=== PATIENT | male | born 1935 | race Caucasian/White ===

== ENCOUNTER 2018-09-25 16:02 | Inpatient (IN) | payer MEDICARE, OTHER ==
[~2018-09-25] VITALS: Ht 180.3 cm; Wt 74.9 kg
[2018-09-25] MEDS ORDERED: SODIUM CHLORIDE 0.9% 1,000 ML IVB ONE (17:28)
[2018-09-25 17:49] LABS: Basophils # (auto) 0 uL; Basophils % (auto) 0.7 % (0.0-2.0); Eosinophils # (auto) 0 uL; Eosinophils % (auto) 0.3 % (0.0-7.0); Hematocrit 39.3 % (41.0-53.0); Hemoglobin 13.1 g/dL (13.5-17.5); Lymphocytes # (auto) 0.4 uL; Lymphocytes % (auto) 7.6 % (10.0-50.0); Mean Corpuscular Hemoglobin 31.9 pg (28.0-32.0); Mean Corpuscular Hgb Conc. 33.4 g/dL (32.0-36.0); Mean Corpuscular Volume 95.6 fL (80.0-100.0); Monocytes # (auto) 0.4 uL; Monocytes % (auto) 7.2 % (0.0-12.0); Neutrophils # (auto) 4.5 uL; Neutrophils % (auto) 84.2 % (37.0-80.0); Nucleated Red Blood Cells % 0.1 %; Platelet Count (auto) 107 10^3/uL (140-450); Red Cell Distribution Width 16.2 % (11.8-14.3); White Blood Cell 5.4 10^3/uL (4.4-10.8)
[2018-09-25 18:01] LABS: Calcium 8.3 mg/dL (8.5-10.1); Potassium 3.6 mmol/L (3.5-5.1)
[2018-09-25 18:04] LABS: BUN/Creatinine Ratio 18.8; INR 1.45 (0.9-1.15); Partial Thromboplastin Time 38.4 sec (23.64-32.05)
[2018-09-25 18:09] LABS: Bilirubin, Total 1.2 mg/dL (0.2-1.0)
[2018-09-25] MEDS ORDERED: cefTRIAXone 1GM/50ML D5W 50 ML IV ONE (21:15)
[2018-09-25] MEDS ORDERED: ONDANSETRON HCL 4 MG/2 ML VIAL IV PRN (21:15)
[2018-09-25] MEDS: HYDROcodone-ACET 5/325MG TAB PO PRN (22:31)
[2018-09-26] MEDS ORDERED: FUROSEMIDE 40 MG/4 ML VIAL IV ONE
[2018-09-26] MEDS ORDERED: POTASSIUM CHL 20 Meq TABLET PO ONE
[2018-09-26] MEDS ORDERED: FUROSEMIDE 40 MG/4 ML VIAL ONE (00:42)
[2018-09-26 01:47] LABS: Urine Bacteria NONE SEEN /hpf (None Seen); Urine Blood 1+ /uL (Negative); Urine Hyaline Cast FEW /lpf (0 - 2); Urine Mucus FEW (None Seen); Urine Specific Gravity 1.025 (1.001-1.035); Urine WBC 16 /hpf (0 - 3)
[2018-09-26 07:46] LABS: Calcium 8.1 mg/dL (8.5-10.1); Potassium 3.8 mmol/L (3.5-5.1)
[2018-09-26 09:01] LABS: Basophils # (auto) 0 uL; Eosinophils # (auto) 0.1 uL; Eosinophils % (auto) 1.2 % (0.0-7.0); Hematocrit 41.3 % (41.0-53.0); Hemoglobin 13.5 g/dL (13.5-17.5); Lymphocytes # (auto) 0.6 uL; Lymphocytes % (auto) 13.1 % (10.0-50.0); Mean Corpuscular Hemoglobin 31.6 pg (28.0-32.0); Mean Corpuscular Hgb Conc. 32.8 g/dL (32.0-36.0); Mean Corpuscular Volume 96.3 fL (80.0-100.0); Monocytes # (auto) 0.4 uL; Monocytes % (auto) 8.7 % (0.0-12.0); Neutrophils # (auto) 3.4 uL; Platelet Count (auto) 102 10^3/uL (140-450); Red Blood Cells 4.28 10^6/uL (4.5-5.90); Red Cell Distribution Width 16.1 % (11.8-14.3); White Blood Cell 4.5 10^3/uL (4.4-10.8)
[2018-09-26] MEDS: cefTRIAXone 1GM/50ML D5W 50 ML IV SCH (09:35)
[2018-09-26] MEDS: FUROSEMIDE 40 MG/4 ML VIAL IV SCH (10:00)
[2018-09-26] MEDS: POTASSIUM CHL 20 Meq TABLET PO SCH (10:00)
[2018-09-26] MEDS: SODIUM CHLORIDE 0.9% 1,000 ML IV SCH (14:28)
--- NOTE | 2018-09-26 16:00 | NUR ---
MS admit from ER DONMARCOS admitted to med/surg unit. Verbal report received from ER nurse. Patient oriented to Gretel James RN primary RN, unit, room, bed, and unit policies regarding patient care and visiting hours. Patient weighed by bedscale and encouraged to call if they need something. All questions and concerns addressed, patient verbalized understanding. Pt is able to answer basic questions. Pt is poor historian, and unable to state home medications. Mcfarland draining clear yellow urine. IV patent, site clear to left hand. Pt c/o chronic back pain, but denies pain medication at this time. Pt able to drink water without difficulty swallowing. Note:
--- NOTE | 2018-09-26 16:30 | NUR ---
Attempted to start new 20g IV above hand/wrist area, per request of radiologic technologist chief, without success. Current 20g IV to right wrist area patent, with good blood return, and flushes without resistance or c/o discomfort from pt. radiologic technologist chief informed. Pt's son at bedside to assist with admission questions.
[2018-09-26] MEDS ORDERED: IOHEXOL 350 MG/ML 100ML IJ ONE (16:38)
--- NOTE | 2018-09-26 17:00 | NUR ---
Pt returned from CT scan. IV to right hand/wrist area patent, site clear, with no c/o tenderness or discomfort.
[2018-09-26] MEDS: HYDROcodone-ACET 5/325MG TAB PO PRN (17:17)
[2018-09-26] MEDS ORDERED: DIGO0.1220 PO (17:40)
[2018-09-26] MEDS ORDERED: LOSA-39 PO (17:40)
[2018-09-26] MEDS ORDERED: POTA-220 PO (17:40)
--- NOTE | 2018-09-26 17:55 | NUR ---
Nasal swap sent for MRSA screening.
--- NOTE | 2018-09-26 18:54 | NUR ---
Pt sitting on edge of bed, feeding self without difficulty chewing or swallowing. Son remains at bedside.
--- NOTE | 2018-09-26 18:56 | NUR ---
Results of CT angio pending.
--- NOTE | 2018-09-26 19:39 | NUR ---
Opening Shift Note Assumed care of patient, awake and alert. No S/S of distress/SOB or pain. Instructed on POC and to call for assist PRN, will continue to monitor for changes Q1hr and PRN. Bed alarm turned on, bed in low position. Son at bedside. PICTURE TAKEN TO PRESSURE WOUND ON SACRUM. PATIENT AND SON NOTIFIED.
--- NOTE | 2018-09-26 21:31 | NUR ---
SACRUM PRESSURE ULCER PRESENT ON ADMISSION.
[2018-09-26 22:10] VITALS: BP 109/63
[2018-09-27 05:11] VITALS: BP 97/57
[2018-09-27] MEDS: SODIUM CHLORIDE 0.9% 1,000 ML IV SCH (05:22)
[2018-09-27 08:00] VITALS: BP 117/74
[2018-09-27] MEDS: HYDROcodone-ACET 5/325MG TAB PO PRN ×2 (08:19→15:13)
[2018-09-27] MEDS: cefTRIAXone 1GM/50ML D5W 50 ML IV SCH (08:19)
[2018-09-27 09:00] VITALS: BP 96/61
--- NOTE | 2018-09-27 09:00 | NUR ---
Pt alert and oriented to self. Pt unable to state time, place or situation. [place] given for c/o chronic low back pain, with good effectiveness. No other c/o pain or discomfort. Pt is cooperative with care rendered. Pt does not attempt to get out of bed, or pull on IV or wilcox cath.
--- NOTE | 2018-09-27 09:42 | NUR ---
WOUND CARE NOTE: SPECIALTY AIR MATTRESS ORDERED AT THIS TIME, (SYNERGY AIR ELITE). PATIENT TO BE PLACED, PENDING ON DELIVERY BY BEAR OCONNOR.
[2018-09-27] MEDS: POTASSIUM CHL 20 Meq TABLET PO SCH (09:57)
[2018-09-27] MEDS: DIGOXIN 0.125 MG TAB PO SCH (09:57)
[2018-09-27] MEDS: FAMOTIDINE (10MG/ML) 2ML VL IV SCH (09:58)
[2018-09-27] MEDS: FUROSEMIDE 40 MG/4 ML VIAL IV SCH (09:58)
--- NOTE | 2018-09-27 12:00 | NUR ---
B/P 87/50, following administration of Lasix 40mg IVP.
--- NOTE | 2018-09-27 12:15 | NUR ---
HOLD P.T. UNTIL BP INCREASES.
--- NOTE | 2018-09-27 12:30 | NUR ---
B/P 103/53. Pulse 76. Pt denies pain or discomfort at this time. Family at bedside.
[2018-09-27 13:00] VITALS: BP 103/55
[2018-09-27 17:00] VITALS: BP 109/51
--- NOTE | 2018-09-27 19:30 | NUR ---
Opening Shift Note Assumed care of patient, awake and alert. No S/S of distress/SOB or pain. Instructed on POC and to call for assist PRN, will continue to monitor for changes Q1hr and PRN. Call church with in reach, bed in low position. Patient's daughter Constanza at bedside saying patient needs his pain medication. Checked chart and explained that it is not due and will give it when it's due. Constanza claimed patient never got pain medication as charted at 1513, reassured Constanza that as soon as pain medication is due this nurse will give it. Re assured Constanza too that patient will be turned every 2 hours.
[2018-09-27] MEDS ORDERED: HYDROcodone-ACET 5/325MG TAB PO PRN (20:45)
--- NOTE | 2018-09-27 20:49 | NUR ---
WENT TO ROOM TO GIVE PAIN MEDICATION PER REQUEST OF PATIENT'S DAUGHTER LUIS A. ASKED PATIENT HIS PAIN LEVEL AND HE SAID ZERO. PATIENT SAID " I DON'T NEED IT".
[2018-09-27 21:47] VITALS: BP 109/56
--- NOTE | 2018-09-27 23:00 | NUR ---
Patient's bed changed to bed with special Air mattress.
[2018-09-27] MEDS: DONEPEZIL HYDROCHLORIDE 5 MG TAB PO SCH (23:15)
--- NOTE | 2018-09-28 | NUR ---
Patient offered pain medication, patient said no.
[2018-09-28 04:19] VITALS: BP 119/72
[2018-09-28 06:02] LABS: Basophils # (auto) 0 uL; Basophils % (auto) 0.8 % (0.0-2.0); Eosinophils # (auto) 0.1 uL; Eosinophils % (auto) 1.5 % (0.0-7.0); Hematocrit 42.4 % (41.0-53.0); Hemoglobin 14.1 g/dL (13.5-17.5); Lymphocytes # (auto) 0.7 uL; Lymphocytes % (auto) 14.6 % (10.0-50.0); Mean Corpuscular Hemoglobin 31.8 pg (28.0-32.0); Mean Corpuscular Hgb Conc. 33.2 g/dL (32.0-36.0); Mean Corpuscular Volume 95.7 fL (80.0-100.0); Monocytes # (auto) 0.4 uL; Monocytes % (auto) 8.3 % (0.0-12.0); Neutrophils # (auto) 3.5 uL; Neutrophils % (auto) 74.8 % (37.0-80.0); Nucleated Red Blood Cells % 0.1 %; Platelet Count (auto) 112 10^3/uL (140-450); Red Blood Cells 4.43 10^6/uL (4.5-5.90); Red Cell Distribution Width 15.6 % (11.8-14.3); White Blood Cell 4.7 10^3/uL (4.4-10.8)
[2018-09-28 06:16] LABS: Potassium 3.9 mmol/L (3.5-5.1)
[2018-09-28 06:29] LABS: Albumin 2.5 g/dL (3.4-5.0); BUN/Creatinine Ratio 29.1; Bilirubin, Total 0.9 mg/dL (0.2-1.0); Calcium 7.9 mg/dL (8.5-10.1); Total Protein 5.6 g/dL (6.4-8.2)
[2018-09-28 08:28] VITALS: BP 105/66
[2018-09-28 08:38] LABS: INR 1.33 (0.9-1.15); Partial Thromboplastin Time 36.5 sec (23.64-32.05)
[2018-09-28] MEDS ORDERED: diphenhdrAMINE HCL 50 MG/1 ML VL ONE (10:24)
--- NOTE | 2018-09-28 10:30 | NUR ---
assessment Per consult dc planning and SNF placement. When I went to bedside patient was out for a procedure. Per patients son and daughter Rakesh and Constanza prior to admission patient lived home with his and needed assistance. Per family they are requesting SNF at [facility]. Per Rakesh and Constanza they are looking at intermodal truck driver placement for patient at [facility] after SNF for patient and his . MD order will be sent to [facility] as per family request. Addendum: 09/28/18 at 1658 by Beverley Acevedo Amended: Links added.
--- NOTE | 2018-09-28 11:29 | NUR ---
THORACENTESIS: Patient brought to ultrasound via bed for ultrasound guided thoracentesis to left chest. Consent verified and time out completed. Initial vital signs BP 105/85 HR 77 RR 18 O2sats 99% on 3L. Dr Brandon verified fluid via ultrasound and catheter inserted. 1900ml of pleural fluid removed. Draining stopped due to patient complaining of chest pain. Post vital signs BP 108/82 HR 74 RR 16 O2sats 98% on 3L. Patient to CXR via bed. SBAR provided to bedside RNLinette.
--- NOTE | 2018-09-28 11:35 | NUR ---
Patient returned from thoracentesis procedure Patient on 2L nasal cannula, no SOB, lung sounds mild diminish to the left lower lobe. Report regarding procedure in notes. Minimal serous drainage to the dressing size of a dime. Patient is otherwise comfortable at this time and would like to sit up to eat lunch. Will continue to monitor.
--- NOTE | 2018-09-28 11:40 | NUR ---
WOUND CARE NOTE: IN TO SEE PATIENT AT THIS TIME PER WOUND CARE CONSULT REQUEST. PATIENT NOTED UPON ADMIT TO HAVE WOUNDS. WOUNDS PHOTOGRAPHED AT THAT TIME BY BEDSIDE NURSE FOR REFERENCE. PATIENT WAS ADMITTED TO [facility] WITH DIAGNOSIS OF RECURRENT FALLS. CURRENT MARC SCORE IS 14. PATIENT IS ABLE TO ASSIST WITH HIS TURNING/REPOSITIONING. HE THIN, WEIGHING 81 KG. PATIENT IS RESTING ON SPECIALTY AIR MATTRESS PER PROTOCOL. HE IS NOTED TO HAVE 2 STAGE 3 PRESSURE ULCERS TO THE SACRUM, AND ONE STAGE 1 TO RIGHT LOWER SACRUM. APPLIED THERAHONEY AND OPTIFOAM GENTLE DRESSINGS HE IS NOTED TO HAVE INTERTRIGINOUS RASH TO THE ABDOMINAL/GROIN SKIN FOLD AREAS. BEDSIDE NURSE HAS APPLIED ANTIFUNGAL CLEAR OINTMENT TO THE REDDENED AREAS. PATIENT HAS A VARIETY OF SCABBED ABRASIONS TO BLE, BUE. ALL LEFT OPEN TO AIR. ALL WOUND STATS CAN BE FOUND WITHIN WOUND ASSESSMENT, LINKED WITH THIS NOTE. NEW WOUND PHOTOS TAKEN FOR REFERENCE AT THIS TIME. SKIN/WOUND CARE PLAN IMPLEMENTED. RECOMMEND: FREQUENT TURN SCHEDULE Q 2 HOURS, PRN CONDITION PERMITS,WITH PRESSURE REDISTRIBUTION USING PILLOWS/WEDGES, SPECIALTY AIR MATTRESS, DAILY/PRN DRESSING CHANGES TO SACRAL ULCERS, BID APPLICATION OF ANTIFUNGAL CLEAR OINTMENT TO RED RASH AREAS OF ABDOMEN/GROIN SKIN FOLD AREAS, DIETARY CONSULT, SKIN/WOUND CARE PLAN, CONTINUED MONITORING BY WOUND CARE TEAM. Addendum: 09/28/18 at 1625 by Dilcia Maurice RN Amended: Links added.
--- NOTE | 2018-09-28 11:42 | NUR ---
PT RECEIVING TREATMENT. ATTEMPT P.T. LATER.
[2018-09-28] MEDS ORDERED: CARVEDILOL 3.125 MG TAB PO ONE (12:30)
[2018-09-28] MEDS: FAMOTIDINE (10MG/ML) 2ML VL IV SCH (12:34)
[2018-09-28] MEDS: cefTRIAXone 1GM/50ML D5W 50 ML IV SCH (12:37)
[2018-09-28] MEDS: FOLIC ACID 1 MG TAB PO SCH (12:41)
[2018-09-28] MEDS: DIGOXIN 0.125 MG TAB PO SCH (12:41)
[2018-09-28] MEDS: POTASSIUM CHL 20 Meq TABLET PO SCH (12:42)
[2018-09-28 13:00] VITALS: BP 113/71
[2018-09-28 13:34] LABS: Cholesterol 118 mg/dL (< 200); HDL Cholesterol 29 mg/dL (40-59); LDL Cholesterol 58 mg/dL (< 100); Triglycerides 89 mg/dL (< 150)
[2018-09-28 15:04] LABS: Folate (Folic Acid) 8.99 ng/mL (5.38-24)
--- NOTE | 2018-09-28 15:20 | NUR ---
agricultural engineering technicians called EEG machine is not working today. Dr. Baeza notified by log data technician. Procedure should be tomorrow.
[2018-09-28 17:02] VITALS: BP 97/65
--- NOTE | 2018-09-28 17:09 | NUR ---
Per consult, patient received an order for SNF placement. Referral faxed to [facility]. Per Reta, they are willing to accept this case, and tentatively the accepting physician is Dr. Kaufman. Addendum: 09/28/18 at 1710 by ARIANNA NICE Amended: Links added.
[2018-09-28] MEDS: FUROSEMIDE 40 MG/4 ML VIAL IV SCH (19:28)
[2018-09-28] MEDS: CARVEDILOL 3.125 MG TAB PO SCH (19:58)
[2018-09-28] MEDS: DONEPEZIL HYDROCHLORIDE 5 MG TAB PO SCH (19:58)
[2018-09-28 21:00] VITALS: BP 107/52
[2018-09-29 05:00] VITALS: BP 109/56
[2018-09-29] MEDS: FUROSEMIDE 40 MG/4 ML VIAL IV SCH ×2 (05:51→18:00)
[2018-09-29 05:59] LABS: Basophils # (auto) 0 uL; Basophils % (auto) 0.7 % (0.0-2.0); Eosinophils # (auto) 0.1 uL; Eosinophils % (auto) 1.2 % (0.0-7.0); Hematocrit 43.8 % (41.0-53.0); Hemoglobin 14.8 g/dL (13.5-17.5); Lymphocytes # (auto) 0.6 uL; Lymphocytes % (auto) 11.6 % (10.0-50.0); Mean Corpuscular Hemoglobin 31.9 pg (28.0-32.0); Mean Corpuscular Hgb Conc. 33.7 g/dL (32.0-36.0); Mean Corpuscular Volume 94.6 fL (80.0-100.0); Monocytes # (auto) 0.4 uL; Monocytes % (auto) 8.6 % (0.0-12.0); Neutrophils # (auto) 3.7 uL; Neutrophils % (auto) 77.9 % (37.0-80.0); Nucleated Red Blood Cells % 0.1 %; Platelet Count (auto) 117 10^3/uL (140-450); Red Blood Cells 4.63 10^6/uL (4.5-5.90); White Blood Cell 4.8 10^3/uL (4.4-10.8)
[2018-09-29 06:10] LABS: Albumin 2.6 g/dL (3.4-5.0); Calcium 8.1 mg/dL (8.5-10.1); Potassium 3.7 mmol/L (3.5-5.1)
[2018-09-29 06:19] LABS: Bilirubin, Total 0.8 mg/dL (0.2-1.0); Total Protein 5.5 g/dL (6.4-8.2)
[2018-09-29 06:34] LABS: BUN/Creatinine Ratio 26.2
--- NOTE | 2018-09-29 08:00 | NUR ---
Opening Note Assumed care of patient, he is alert and ready to eat breakfast. Dr. Marie at bedside with patient, discussed POC to discharge to [facility]. Patient said "okay." Will call the daughter to notify of placement and call Captain Waiter/Waitress to move forward with transfer and discharge. Bed is in low, locked position, call light within reach. Will continue to monitor Q1h and PRN.
[2018-09-29 09:00] VITALS: BP 94/66
[2018-09-29] MEDS ORDERED: LISINOPRIL 5 MG TAB PO SCH (10:00)
--- NOTE | 2018-09-29 10:23 | NUR ---
Per consult, patient received orders to dc to SNF. Placed a call to Constanza at [phone], to inquire regarding placement preference. She advised that she would like patient to be placed at [facility]. Placed a call to the facility at [phone], spoke with [facility] in admissions and was provided a fax number. Referral packet sent over, approval/denial is pending. Addendum: 09/29/18 at 1026 by ARIANNA NICE Amended: Links added.
[2018-09-29] MEDS: FAMOTIDINE (10MG/ML) 2ML VL IV SCH (10:29)
[2018-09-29] MEDS: cefTRIAXone 1GM/50ML D5W 50 ML IV SCH (10:29)
[2018-09-29] MEDS: DIGOXIN 0.125 MG TAB PO SCH (10:32)
[2018-09-29] MEDS: FOLIC ACID 1 MG TAB PO SCH (10:33)
[2018-09-29] MEDS: CARVEDILOL 3.125 MG TAB PO SCH (10:33)
[2018-09-29] MEDS: POTASSIUM CHL 20 Meq TABLET PO SCH (10:33)
[2018-09-29 13:00] VITALS: BP 95/57
--- NOTE | 2018-09-29 13:30 | NUR ---
Spoke to Dr. Marie Regarding family request for [facility] instead of [facility]. Dr. Marie agreed, as long as social media job titles can make it work. Orders received, read back and verified.
[2018-09-29 17:00] VITALS: BP 92/62
--- NOTE | 2018-09-29 17:37 | NUR ---
Received information from Commercial Loan Analyst Patient accepted to [facility], [address] [place] [id number] , [address]. Will call to give report at earliest availability.
--- NOTE | 2018-09-29 17:39 | NUR ---
Per consult, patient received orders to dc to SNF. was requesting [facility]. Referral faxed, facility accepted per Lisha in admissions. Per nurse Calle, daughter will transport patient by private personal vehicle to the facility located at [address] [place] [id number], . Per Trevor at [facility], the accepting provider is Dr. Lopez. Nurse Calle advised of the dc plan and provided facility information. Addendum: 09/29/18 at 1744 by ARIANNA NICE SS Amended: Links added.
--- NOTE | 2018-09-29 18:35 | NUR ---
Report Given to [facility] To Trevor Gordon RN. Patient will be transported in private vehicle by family to facility. Family will be given a loaner oxygen tank for transport and educated to bring back upon completion of use to charge nurse at this hospital.
[2018-09-29 18:55] VITALS: BP 99/57
[2018-09-29] MEDS ORDERED: LEVO500T21 PO (19:16)
[2018-09-29] MEDS ORDERED: FURO1TAB31 PO (19:16)
--- NOTE | 2018-09-29 19:59 | NUR ---
open note pt awake alert at time of this nurse waling in. no distress noted or expressed. pt denied any pain. discharge wound photos taken without issue. pt is aware of pending discharge. family on site.
--- NOTE | 2018-09-29 20:32 | NUR ---
pt transported per family private vehicle. IV discontinued without incident. pt denies any pain, no distress noted. all belonging with pt family. no additional questions at this time. wilcox in place. portable oxygen running at 2L via [place].
== END 2018-09-29 20:20 | DRG 689 ==
LOC: ER 16:02 → OVERFLOW 16:03 → CENTRAL 09-26 15:47
PROVIDERS: ADMIT Internal Medicine; ATTEND Family Medicine
PROC: 0W9B3ZZ Drainage of Left Pleural Cavity, Percutaneous Approach (ICD-10-PCS; principal; 2018-09-28)
DX: N39.0 Urinary tract infection, site not specified (principal); I50.23 Acute on chronic systolic (congestive) heart failure; J91.8 Pleural effusion in other conditions classified elsewhere; I42.0 Dilated cardiomyopathy; I11.0 Hypertensive heart disease with heart failure; E86.0 Dehydration; R29.6 Repeated falls; D69.6 Thrombocytopenia, unspecified; F02.80 Dementia in other diseases classified elsewhere, unspecified severity, without behavioral disturbance, psychotic disturbance, mood disturbance, and anxiety; G30.9 Alzheimer's disease, unspecified; J44.9 Chronic obstructive pulmonary disease, unspecified; M47.816 Spondylosis without myelopathy or radiculopathy, lumbar region; M51.36 Other intervertebral disc degeneration, lumbar region; R62.7 Adult failure to thrive; E78.00 Pure hypercholesterolemia, unspecified; I25.2 Old myocardial infarction; Z95.0 Presence of cardiac pacemaker; Z95.810 Presence of automatic (implantable) cardiac defibrillator; Z88.8 Allergy status to other drugs, medicaments and biological substances; Z88.0 Allergy status to penicillin
CPT/HCPCS: 10022; 32555; 36415; 51702; 70450; 71045; 71275; 72125; 72131; 76604; 76942; 80048; 80053; 80061; 81001; 82550; 82607; 82746; 83735; 83880; 84443; 84484; 85025; 85379; 85610; 85730; 87040; 87081; 87086; 87205; 89051; 93306; 93970; 94761; 96365; 96366; 96375; 96376; 97163; G0378; J0696; J3490